=== PATIENT | female | born 1980 | race Caucasian/White ===

== ENCOUNTER 2020-09-02 12:02 | Inpatient (IN) | payer OTHER ==
[2020-09-02] MEDS ORDERED: SODIUM CHLORIDE 1,000 ML IV STA (13:37)
[2020-09-02] MEDS ORDERED: PIPERACILLIN/TAZOB 3.375 GM 3.375 GM in DEXTROSE 5%-WATER - 50 ML IVPB ONE (13:45)
[2020-09-02] MEDS ORDERED: PIPERACILLIN/TAZOB 3.375 GM 3.375 GM/50 ML BAG IVPB ONE (14:16)
[2020-09-02 14:32] LABS: BASO % 0.5 % (0-2.0); EOS % 0.6 % (0-4.5); HEMATOCRIT 33.9 % (32.4-45.2); HEMOGLOBIN 11.7 GM/dL (10.7-15.3); LYMPH % 8.7 % (8-40); MCH 29.2 pg (25.7-33.7); MCHC 34.4 g/dl (32.0-36.0); MEAN CELL VOLUME 84.9 fl (80-96); MONO % 6.7 % (3.8-10.2); NEUT % 83.5 % (42.8-82.8); PLATELET COUNT 266 K/MM3 (134-434); RBC 3.99 M/mm3 (3.60-5.2); RDW 14.3 % (11.6-15.6); WHITE BLOOD COUNT 8.9 K/mm3 (4.0-10.0)
[2020-09-02 14:37] LABS: INR 1.02 (0.83-1.09); PROTHROMBIN TIME (PATIENT) 12.5 SEC (9.7-13.0)
[2020-09-02 14:39] LABS: ACTIVATED PTT 47.2 SECONDS (25.2-36.5)
[2020-09-02 14:49] LABS: POTASSIUM 3.7 mmol/L (3.5-5.1)
[2020-09-02 14:51] LABS: ALBUMIN 2.4 g/dl (3.4-5.0); BLOOD UREA NITROGEN 16.5 mg/dL (7-18); CALCIUM 8.2 mg/dL (8.5-10.1)
[2020-09-02 14:52] LABS: EPI CELLS >36 /uL (0-25.1); HYALINE CASTS 19 /uL (0-3.1); PH,URINE 5.5 (5.0-8.0); URINE APPEARANCE CLOUDY; URINE BACTERIA 159 /uL (0-1359); URINE BILIRUBIN NEGATIVE (NEGATIVE); URINE COLOR YELLOW; URINE GLUCOSE (UA) 3+ (NEGATIVE); URINE KETONE 2+ (NEGATIVE); URINE LEUK ESTERASE NEGATIVE (NEGATIVE); URINE NITRITE NEGATIVE (NEGATIVE); URINE PROTEIN 1+ (NEGATIVE); URINE RBC 11 /uL (0-23.9); URINE WBC 37 /uL (0-25.8)
[2020-09-02 14:55] LABS: CREATININE 0.7 mg/dL (0.55-1.3)
[2020-09-02 14:56] LABS: BILIRUBIN,TOTAL 0.6 mg/dL (0.2-1); TOT PROT 6.9 g/dl (6.4-8.2)
[2020-09-02] MEDS ORDERED: VANCOMYCIN HCL 1,500 MG in DEXTROSE 5%-WATER - 500 ML IVPB ONE (18:09)
[2020-09-02] MEDS: PIPERACILLIN/TAZOB 4.5 GM 4.5 GM in DEXTROSE 5%-WATER 100 ML IVPB SCH (18:49)
[2020-09-02] MEDS: INSULIN SLIDING SCALE (NOVOLOG) 1 VIAL SQ SCH (22:07)
[2020-09-03] MEDS ORDERED: PIPERACILLIN/TAZOBACTAM 4.5 GM VIAL IVPB ONE ×2 (01:36→09:01)
[2020-09-03] MEDS ORDERED: DEXTROSE 5%-WATER 100 ML IVPB ONE ×2 (01:36→09:01)
[2020-09-03] MEDS: PIPERACILLIN/TAZOB 4.5 GM 4.5 GM in DEXTROSE 5%-WATER 100 ML IVPB SCH ×3 (01:41→18:25)
[2020-09-03 02:11] VITALS: BMI 28.5
[2020-09-03] MEDS: INSULIN SLIDING SCALE (NOVOLOG) 1 VIAL SQ SCH ×4 (06:17→21:18)
[2020-09-03 07:39] LABS: POTASSIUM 3.5 mmol/L (3.5-5.1)
[2020-09-03 07:40] LABS: BASO % 0.8 % (0-2.0); EOS % 1.8 % (0-4.5); HEMATOCRIT 31.2 % (32.4-45.2); HEMOGLOBIN 10.9 GM/dL (10.7-15.3); LYMPH % 11.6 % (8-40); MCH 29.5 pg (25.7-33.7); MCHC 34.9 g/dl (32.0-36.0); MEAN CELL VOLUME 84.4 fl (80-96); MEAN PLT VOLUME 8.8 fl (7.5-11.1); MONO % 5.4 % (3.8-10.2); NEUT % 80.4 % (42.8-82.8); PLATELET COUNT 276 K/MM3 (134-434); RBC 3.69 M/mm3 (3.60-5.2); RDW 14.2 % (11.6-15.6)
[2020-09-03 07:43] LABS: BLOOD UREA NITROGEN 9.6 mg/dL (7-18); CALCIUM 7.8 mg/dL (8.5-10.1)
[2020-09-03 07:47] LABS: CREATININE 0.5 mg/dL (0.55-1.3)
[2020-09-03] MEDS: ENOXAPARIN NA (PORCINE) 40 MG/0.4 ML DISP.SYRIN SQ SCH (09:45)
[2020-09-03] MEDS ORDERED: INSULIN (NOVOLOG) ASPART 100 UNITS/ML 10ML VIAL ONE (11:03)
[2020-09-03] MEDS ORDERED: VANCOMYCIN/WATER 1,250 MG/250 ML BAG IVPB SCH (12:30)
[2020-09-03] MEDS ORDERED: VANCOMYCIN HCL 1,250 MG in DEXTROSE 5%-WATER - 250 ML IVPB SCH ×3 (12:30→22:00)
[2020-09-03] MEDS ORDERED: VANCOMYCIN 1 GRAM (PRE-DOCKED) 1,000 MG/250 ML BAG IVPB SCH ×2 (15:00→18:00)
[2020-09-03] MEDS ORDERED: DEXTROSE 5%-WATER - 50 ML IVPB ONE ×2 (16:27→23:58)
[2020-09-03] MEDS ORDERED: PIPERACILLIN/TAZOBACTAM 3.375 GM VIAL IVPB ONE ×2 (16:27→23:58)
[2020-09-03] MEDS: PIPERACILLIN/TAZOB 3.375 GM 3.375 GM in DEXTROSE 5%-WATER - 50 ML IVPB SCH (17:29)
[2020-09-04] MEDS: VANCOMYCIN 1 GRAM (PRE-DOCKED) 1,000 MG/250 ML BAG IVPB SCH ×2 (00:05→13:34)
[2020-09-04] MEDS ORDERED: VANCOMYCIN 1,000 MG in DEXTROSE 5%-WATER - 1,000 MG/250 ML IVPB IVPB SCH (01:00)
[2020-09-04] MEDS: PIPERACILLIN/TAZOB 3.375 GM 3.375 GM in DEXTROSE 5%-WATER - 50 ML IVPB SCH ×3 (01:50→17:09)
[2020-09-04] MEDS: INSULIN SLIDING SCALE (NOVOLOG) 1 VIAL SQ SCH ×4 (06:25→21:31)
[2020-09-04] MEDS ORDERED: glipiZIDE 5 MG TABLET (FP) PO SCH (07:00)
[2020-09-04] MEDS: PIPERACILLIN/TAZOB 4.5 GM 4.5 GM in DEXTROSE 5%-WATER 100 ML IVPB SCH ×2 (07:15→07:16)
[2020-09-04 07:30] LABS: BASO % 0.8 % (0-2.0); EOS % 2.2 % (0-4.5); HEMATOCRIT 30.3 % (32.4-45.2); HEMOGLOBIN 10.4 GM/dL (10.7-15.3); MCH 29.2 pg (25.7-33.7); MCHC 34.4 g/dl (32.0-36.0); MEAN CELL VOLUME 84.8 fl (80-96); MEAN PLT VOLUME 8.5 fl (7.5-11.1); MONO % 10.7 % (3.8-10.2); NEUT % 71.3 % (42.8-82.8); PLATELET COUNT 311 K/MM3 (134-434); RBC 3.58 M/mm3 (3.60-5.2); RDW 13.6 % (11.6-15.6); WHITE BLOOD COUNT 4.9 K/mm3 (4.0-10.0)
[2020-09-04 07:53] LABS: POTASSIUM 3.8 mmol/L (3.5-5.1)
[2020-09-04 07:54] LABS: BLOOD UREA NITROGEN 7.5 mg/dL (7-18); CALCIUM 7.8 mg/dL (8.5-10.1)
[2020-09-04 07:55] LABS: MAGNESIUM 1.7 mg/dL (1.8-2.4)
[2020-09-04 07:58] LABS: CREATININE 0.5 mg/dL (0.55-1.3); PHOSPHOROUS 3.3 mg/dL (2.5-4.9)
[2020-09-04] MEDS ORDERED: PIPERACILLIN/TAZOBACTAM 3.375 GM VIAL IVPB ONE ×2 (09:32→16:36)
[2020-09-04] MEDS ORDERED: DEXTROSE 5%-WATER - 50 ML IVPB ONE ×2 (09:32→16:36)
[2020-09-04] MEDS ORDERED: VANCOMYCIN HCL 1,250 MG in DEXTROSE 5%-WATER - 250 ML IVPB SCH ×3 (10:00)
[2020-09-04] MEDS: ENOXAPARIN NA (PORCINE) 40 MG/0.4 ML DISP.SYRIN SQ SCH (10:00)
[2020-09-04] MEDS: BACITRACIN 15 GM TUBE TOPICAL OINTMENT TP SCH (10:01)
[2020-09-04] MEDS ORDERED: INSULIN (NOVOLOG) ASPART 100 UNITS/ML 10ML VIAL ONE (10:59)
[2020-09-04] MEDS ORDERED: MAGNESIUM 2GM/50ML STERILE WATER IVPB IVPB ONE (11:30)
[2020-09-04] MEDS ORDERED: glipiZIDE 5 MG TABLET (FP) PO ONE (12:00)
[2020-09-05] MEDS ORDERED: PIPERACILLIN/TAZOBACTAM 3.375 GM VIAL IVPB ONE ×3 (02:02→16:15)
[2020-09-05] MEDS ORDERED: DEXTROSE 5%-WATER - 50 ML IVPB ONE ×3 (02:02→16:16)
[2020-09-05] MEDS: PIPERACILLIN/TAZOB 3.375 GM 3.375 GM in DEXTROSE 5%-WATER - 50 ML IVPB SCH ×3 (02:10→16:59)
[2020-09-05] MEDS: VANCOMYCIN 1 GRAM (PRE-DOCKED) 1,000 MG/250 ML BAG IVPB SCH ×2 (02:11→12:45)
[2020-09-05] MEDS: INSULIN SLIDING SCALE (NOVOLOG) 1 VIAL SQ SCH ×4 (06:39→22:10)
[2020-09-05] MEDS ORDERED: glipiZIDE 5 MG TABLET (FP) PO SCH (07:00)
[2020-09-05 08:19] LABS: BASO % 0.6 % (0-2.0); EOS % 2.5 % (0-4.5); HEMATOCRIT 30.3 % (32.4-45.2); HEMOGLOBIN 10.7 GM/dL (10.7-15.3); LYMPH % 19.9 % (8-40); MCH 29.5 pg (25.7-33.7); MCHC 35.5 g/dl (32.0-36.0); MEAN PLT VOLUME 8.3 fl (7.5-11.1); MONO % 8.7 % (3.8-10.2); NEUT % 68.3 % (42.8-82.8); PLATELET COUNT 331 K/MM3 (134-434); RBC 3.65 M/mm3 (3.60-5.2); RDW 13.7 % (11.6-15.6); WHITE BLOOD COUNT 4.6 K/mm3 (4.0-10.0)
[2020-09-05 08:22] LABS: POTASSIUM 4.3 mmol/L (3.5-5.1)
[2020-09-05 08:29] LABS: BLOOD UREA NITROGEN 9.4 mg/dL (7-18); CALCIUM 7.6 mg/dL (8.5-10.1)
[2020-09-05 08:30] LABS: MAGNESIUM 1.5 mg/dL (1.8-2.4)
[2020-09-05 08:32] LABS: CREATININE 0.5 mg/dL (0.55-1.3)
[2020-09-05 08:33] LABS: PHOSPHOROUS 3.3 mg/dL (2.5-4.9)
[2020-09-05 08:34] LABS: BILIRUBIN,TOTAL 0.5 mg/dL (0.2-1)
[2020-09-05] MEDS: ENOXAPARIN NA (PORCINE) 40 MG/0.4 ML DISP.SYRIN SQ SCH (09:22)
[2020-09-05] MEDS: BACITRACIN 15 GM TUBE TOPICAL OINTMENT TP SCH (09:23)
[2020-09-05] MEDS ORDERED: INSULIN SLIDING SCALE (NOVOLOG) 1 VIAL SQ SCH (17:15)
[2020-09-05] MEDS ORDERED: MAGNESIUM SULF 50% (8.12 MEQ/2 ML-1 GM VIAL) IVPB ONE (19:59)
[2020-09-06] MEDS ORDERED: PIPERACILLIN/TAZOBACTAM 3.375 GM VIAL IVPB ONE ×3 (00:06→18:37)
[2020-09-06] MEDS ORDERED: DEXTROSE 5%-WATER - 50 ML IVPB ONE ×3 (00:06→18:38)
[2020-09-06] MEDS: VANCOMYCIN 1 GRAM (PRE-DOCKED) 1,000 MG/250 ML BAG IVPB SCH ×2 (00:24→16:43)
[2020-09-06] MEDS: PIPERACILLIN/TAZOB 3.375 GM 3.375 GM in DEXTROSE 5%-WATER - 50 ML IVPB SCH ×3 (02:19→18:42)
[2020-09-06] MEDS ORDERED: INSULIN (NOVOLOG) ASPART 100 UNITS/ML 10ML VIAL ONE ×3 (06:32→20:28)
[2020-09-06] MEDS: INSULIN SLIDING SCALE (NOVOLOG) 1 VIAL SQ SCH ×4 (06:35→21:50)
[2020-09-06] MEDS ORDERED: glipiZIDE-XL 5 MG TAB.ER.24 PO SCH (07:00)
[2020-09-06 07:46] LABS: BASO % 0.8 % (0-2.0); EOS % 2.8 % (0-4.5); HEMATOCRIT 31.3 % (32.4-45.2); LYMPH % 16.3 % (8-40); MCH 29.5 pg (25.7-33.7); MCHC 35.3 g/dl (32.0-36.0); MEAN CELL VOLUME 83.5 fl (80-96); MEAN PLT VOLUME 7.7 fl (7.5-11.1); MONO % 9.9 % (3.8-10.2); NEUT % 70.2 % (42.8-82.8); PLATELET COUNT 346 K/MM3 (134-434); RBC 3.75 M/mm3 (3.60-5.2); RDW 14.1 % (11.6-15.6); WHITE BLOOD COUNT 4.6 K/mm3 (4.0-10.0)
[2020-09-06 08:10] LABS: CHLORIDE 103 mmol/L (98-107); POTASSIUM 4.5 mmol/L (3.5-5.1); SODIUM 137 mmol/L (136-145)
[2020-09-06 08:31] LABS: ALBUMIN 2.2 g/dl (3.4-5.0); ANION GAP 8 MMOL/L (8-16); BLOOD UREA NITROGEN 14.3 mg/dL (7-18); CALCIUM 7.8 mg/dL (8.5-10.1); CO2 27 mmol/L (21-32); GLUCOSE,RANDOM 289 mg/dL (74-106); MAGNESIUM 1.6 mg/dL (1.8-2.4)
[2020-09-06 08:34] LABS: CREATININE 0.6 mg/dL (0.55-1.3); SGOT/AST 8 U/L (15-37); SGPT/ALT 13 U/L (13-61)
[2020-09-06 08:35] LABS: BILIRUBIN,TOTAL 0.9 mg/dL (0.2-1); TOT PROT 6.4 g/dl (6.4-8.2)
[2020-09-06 08:37] LABS: ALK PHOS 99 U/L (45-117)
[2020-09-06] MEDS ORDERED: MAGNESIUM SULF 50% (8.12 MEQ/2 ML-1 GM VIAL) IVPB ONE (10:23)
[2020-09-06] MEDS ORDERED: MIDAZOLAM HCL 2 MG/2 ML SINGLE DOSE VIAL ONE (14:04)
[2020-09-06] MEDS ORDERED: PROPOFOL 20 ML ONE ×2 (14:04)
[2020-09-06] MEDS ORDERED: LIDOCAINE HCL 1%, 10 MG/ML (20ML VIAL) NR ONE (14:39)
[2020-09-06] MEDS ORDERED: LACTATED RINGERS SOLUTION 1,000 ML IV SCH ×2 (14:45→15:15)
[2020-09-06] MEDS ORDERED: ONDANSETRON 4 MG/2 ML VIAL IVPUSH PRN ×2 (14:45→15:15)
[2020-09-06] MEDS ORDERED: glipiZIDE 10 MG TABLET (FP) PO ONE (16:24)
[2020-09-06] MEDS: BACITRACIN 15 GM TUBE TOPICAL OINTMENT TP SCH (16:42)
[2020-09-06] MEDS ORDERED: glipiZIDE 5 MG TABLET (FP) ONE (16:53)
[2020-09-06] MEDS ORDERED: VANCOMYCIN 1 GRAM (PRE-DOCKED) 1,000 MG/250 ML BAG IVPB SCH (17:00)
[2020-09-07] MEDS ORDERED: PIPERACILLIN/TAZOBACTAM 3.375 GM VIAL IVPB ONE ×3 (00:58→16:14)
[2020-09-07] MEDS ORDERED: DEXTROSE 5%-WATER - 50 ML IVPB ONE ×3 (00:58→16:14)
[2020-09-07] MEDS: PIPERACILLIN/TAZOB 3.375 GM 3.375 GM in DEXTROSE 5%-WATER - 50 ML IVPB SCH ×3 (02:24→17:14)
[2020-09-07] MEDS: VANCOMYCIN HCL 1,250 MG in DEXTROSE 5%-WATER - 250 ML IVPB SCH ×2 (04:21→17:13)
[2020-09-07] MEDS ORDERED: PT OWN MED DRAWER 7, Y5N ONE ×3 (04:59→16:14)
[2020-09-07] MEDS ORDERED: VANCOMYCIN/WATER 1,250 MG/250 ML BAG IVPB SCH (05:00)
[2020-09-07] MEDS: glipiZIDE-XL 5 MG TAB.ER.24 PO SCH ×2 (06:05→17:13)
[2020-09-07] MEDS: INSULIN SLIDING SCALE (NOVOLOG) 1 VIAL SQ SCH ×4 (06:06→21:39)
[2020-09-07] MEDS ORDERED: glipiZIDE 10 MG TABLET (FP) PO SCH (07:00)
[2020-09-07] MEDS ORDERED: glipiZIDE-XL 5 MG TAB.ER.24 PO SCH (07:00)
[2020-09-07 08:29] LABS: POTASSIUM 4.2 mmol/L (3.5-5.1)
[2020-09-07 08:30] LABS: BASO % 0.5 % (0-2.0); EOS % 0.8 % (0-4.5); HEMATOCRIT 31.7 % (32.4-45.2); HEMOGLOBIN 11.1 GM/dL (10.7-15.3); LYMPH % 18.4 % (8-40); MCH 29.2 pg (25.7-33.7); MEAN CELL VOLUME 83.3 fl (80-96); MEAN PLT VOLUME 7.7 fl (7.5-11.1); MONO % 6.7 % (3.8-10.2); NEUT % 73.6 % (42.8-82.8); PLATELET COUNT 380 K/MM3 (134-434); WHITE BLOOD COUNT 4.4 K/mm3 (4.0-10.0)
[2020-09-07 08:33] LABS: BLOOD UREA NITROGEN 15.8 mg/dL (7-18)
[2020-09-07 08:36] LABS: CALCIUM 7.9 mg/dL (8.5-10.1)
[2020-09-07 08:37] LABS: CREATININE 0.7 mg/dL (0.55-1.3); MAGNESIUM 1.9 mg/dL (1.8-2.4); PHOSPHOROUS 2.4 mg/dL (2.5-4.9)
[2020-09-07] MEDS: SILVER SULFADIAZINE 1% TOP CREAM 50 GM JAR TP SCH (10:30)
[2020-09-07] MEDS: ENOXAPARIN NA (PORCINE) 40 MG/0.4 ML DISP.SYRIN SQ SCH (10:31)
[2020-09-07] MEDS: BACITRACIN 15 GM TUBE TOPICAL OINTMENT TP SCH (12:33)
[2020-09-08] MEDS ORDERED: PIPERACILLIN/TAZOBACTAM 3.375 GM VIAL IVPB ONE ×3 (01:25→17:12)
[2020-09-08] MEDS ORDERED: DEXTROSE 5%-WATER - 50 ML IVPB ONE ×3 (01:25→17:13)
[2020-09-08] MEDS: PIPERACILLIN/TAZOB 3.375 GM 3.375 GM in DEXTROSE 5%-WATER - 50 ML IVPB SCH ×3 (03:11→17:25)
[2020-09-08] MEDS ORDERED: PT OWN MED DRAWER 7, Y5N ONE ×2 (04:27→17:27)
[2020-09-08] MEDS: INSULIN SLIDING SCALE (NOVOLOG) 1 VIAL SQ SCH ×4 (06:38→21:26)
[2020-09-08] MEDS: glipiZIDE-XL 5 MG TAB.ER.24 PO SCH ×2 (06:41→17:28)
[2020-09-08 07:53] LABS: HEMATOCRIT 30.9 % (32.4-45.2); HEMOGLOBIN 10.7 GM/dL (10.7-15.3); MCH 29.1 pg (25.7-33.7); MCHC 34.4 g/dl (32.0-36.0); MEAN CELL VOLUME 84.4 fl (80-96); MEAN PLT VOLUME 7.8 fl (7.5-11.1); PLATELET COUNT 343 K/MM3 (134-434); RBC 3.67 M/mm3 (3.60-5.2); RDW 13.9 % (11.6-15.6); WHITE BLOOD COUNT 4.1 K/mm3 (4.0-10.0)
[2020-09-08 08:08] LABS: POTASSIUM 4.5 mmol/L (3.5-5.1)
[2020-09-08 08:12] LABS: BLOOD UREA NITROGEN 14.6 mg/dL (7-18)
[2020-09-08 08:15] LABS: CREATININE 0.6 mg/dL (0.55-1.3)
[2020-09-08] MEDS: VANCOMYCIN HCL 1,250 MG in DEXTROSE 5%-WATER - 250 ML IVPB SCH (08:37)
[2020-09-08] MEDS: SILVER SULFADIAZINE 1% TOP CREAM 50 GM JAR TP SCH (10:38)
[2020-09-08] MEDS: ENOXAPARIN NA (PORCINE) 40 MG/0.4 ML DISP.SYRIN SQ SCH (10:38)
[2020-09-08] MEDS: BACITRACIN 15 GM TUBE TOPICAL OINTMENT TP SCH (10:39)
[2020-09-08] MEDS ORDERED: INSULIN (NOVOLOG) ASPART 100 UNITS/ML 10ML VIAL ONE (21:18)
[2020-09-08] MEDS ORDERED: INSULIN (LEVEMIR) 100 UNITS/ML UNITS SQ ONE (21:18)
[2020-09-09] MEDS ORDERED: PIPERACILLIN/TAZOBACTAM 3.375 GM VIAL IVPB ONE ×3 (00:58→18:00)
[2020-09-09] MEDS ORDERED: DEXTROSE 5%-WATER - 50 ML IVPB ONE ×3 (00:59→18:00)
[2020-09-09] MEDS: PIPERACILLIN/TAZOB 3.375 GM 3.375 GM in DEXTROSE 5%-WATER - 50 ML IVPB SCH ×3 (01:04→18:03)
[2020-09-09] MEDS: INSULIN SLIDING SCALE (NOVOLOG) 1 VIAL SQ SCH ×4 (06:04→21:18)
[2020-09-09] MEDS: glipiZIDE-XL 5 MG TAB.ER.24 PO SCH ×2 (06:04→18:06)
[2020-09-09] MEDS: BACITRACIN 15 GM TUBE TOPICAL OINTMENT TP SCH (09:19)
[2020-09-09] MEDS: SILVER SULFADIAZINE 1% TOP CREAM 50 GM JAR TP SCH (09:19)
[2020-09-09] MEDS ORDERED: PROPOFOL 20 ML ONE (14:14)
[2020-09-09] MEDS ORDERED: MIDAZOLAM HCL 2 MG/2 ML SINGLE DOSE VIAL ONE ×2 (14:15)
[2020-09-09] MEDS ORDERED: BACITRACIN 50,000 UNITS VIAL TP ONE (15:14)
[2020-09-09] MEDS ORDERED: ONDANSETRON 4 MG/2 ML VIAL IVPUSH PRN ×2 (16:36→17:13)
[2020-09-09] MEDS ORDERED: IBUPROFEN 400 MG TABLET (FP) PO PRN (19:16)
[2020-09-10] MEDS ORDERED: PIPERACILLIN/TAZOBACTAM 3.375 GM VIAL IVPB ONE ×3 (00:46→16:52)
[2020-09-10] MEDS ORDERED: DEXTROSE 5%-WATER - 50 ML IVPB ONE ×3 (00:46→16:53)
[2020-09-10] MEDS: PIPERACILLIN/TAZOB 3.375 GM 3.375 GM in DEXTROSE 5%-WATER - 50 ML IVPB SCH ×3 (01:44→17:00)
[2020-09-10] MEDS: glipiZIDE-XL 5 MG TAB.ER.24 PO SCH ×2 (06:15→16:58)
[2020-09-10] MEDS: INSULIN SLIDING SCALE (NOVOLOG) 1 VIAL SQ SCH ×4 (06:16→22:34)
[2020-09-10 08:51] LABS: HEMATOCRIT 34.1 % (32.4-45.2); HEMOGLOBIN 11.7 GM/dL (10.7-15.3); MCHC 34.4 g/dl (32.0-36.0); MEAN CELL VOLUME 84.4 fl (80-96); MEAN PLT VOLUME 8.1 fl (7.5-11.1); PLATELET COUNT 362 K/MM3 (134-434); RBC 4.04 M/mm3 (3.60-5.2); RDW 14.1 % (11.6-15.6); WHITE BLOOD COUNT 5.4 K/mm3 (4.0-10.0)
[2020-09-10 09:00] LABS: POTASSIUM 4.5 mmol/L (3.5-5.1)
[2020-09-10 09:05] LABS: CALCIUM 8.6 mg/dL (8.5-10.1)
[2020-09-10 09:06] LABS: BLOOD UREA NITROGEN 15.1 mg/dL (7-18); MAGNESIUM 1.9 mg/dL (1.8-2.4)
[2020-09-10 09:09] LABS: CREATININE 0.6 mg/dL (0.55-1.3); PHOSPHOROUS 3.6 mg/dL (2.5-4.9)
[2020-09-10] MEDS: LISINOPRIL 5 MG TABLET PO SCH (10:26)
[2020-09-11] MEDS ORDERED: PIPERACILLIN/TAZOBACTAM 3.375 GM VIAL IVPB ONE ×3 (00:50→16:21)
[2020-09-11] MEDS ORDERED: DEXTROSE 5%-WATER - 50 ML IVPB ONE ×3 (00:50→16:21)
[2020-09-11] MEDS: PIPERACILLIN/TAZOB 3.375 GM 3.375 GM in DEXTROSE 5%-WATER - 50 ML IVPB SCH ×3 (01:15→17:02)
[2020-09-11] MEDS ORDERED: PT OWN MED DRAWER 7, Y5N ONE (05:31)
[2020-09-11] MEDS: glipiZIDE-XL 5 MG TAB.ER.24 PO SCH ×2 (06:09→16:46)
[2020-09-11] MEDS: INSULIN SLIDING SCALE (NOVOLOG) 1 VIAL SQ SCH ×4 (06:09→21:10)
[2020-09-11 07:58] LABS: HEMATOCRIT 32.7 % (32.4-45.2); HEMOGLOBIN 11.4 GM/dL (10.7-15.3); MCH 29.3 pg (25.7-33.7); MCHC 34.9 g/dl (32.0-36.0); MEAN CELL VOLUME 84.1 fl (80-96); MEAN PLT VOLUME 7.9 fl (7.5-11.1); PLATELET COUNT 367 K/MM3 (134-434); RBC 3.88 M/mm3 (3.60-5.2); RDW 14.6 % (11.6-15.6)
[2020-09-11 08:18] LABS: POTASSIUM 4.1 mmol/L (3.5-5.1)
[2020-09-11 08:21] LABS: BLOOD UREA NITROGEN 16.7 mg/dL (7-18); CALCIUM 8.6 mg/dL (8.5-10.1); MAGNESIUM 1.8 mg/dL (1.8-2.4)
[2020-09-11 08:24] LABS: CREATININE 0.6 mg/dL (0.55-1.3)
[2020-09-11 08:25] LABS: PHOSPHOROUS 3.3 mg/dL (2.5-4.9)
[2020-09-11] MEDS: LISINOPRIL 5 MG TABLET PO SCH (09:32)
[2020-09-11] MEDS: INSULIN (LEVEMIR) 100 UNITS/ML UNITS SQ SCH ×2 (11:01→21:07)
[2020-09-11] MEDS ORDERED: INSULIN (NOVOLOG) ASPART 100 UNITS/ML 10ML VIAL ONE (20:39)
[2020-09-12] MEDS ORDERED: PIPERACILLIN/TAZOBACTAM 3.375 GM VIAL IVPB ONE ×3 (00:57→16:55)
[2020-09-12] MEDS ORDERED: DEXTROSE 5%-WATER - 50 ML IVPB ONE ×3 (00:58→16:55)
[2020-09-12] MEDS: PIPERACILLIN/TAZOB 3.375 GM 3.375 GM in DEXTROSE 5%-WATER - 50 ML IVPB SCH ×3 (01:18→17:28)
[2020-09-12] MEDS: INSULIN SLIDING SCALE (NOVOLOG) 1 VIAL SQ SCH ×4 (06:39→21:16)
[2020-09-12] MEDS: glipiZIDE-XL 5 MG TAB.ER.24 PO SCH ×2 (06:39→17:28)
[2020-09-12] MEDS: INSULIN (LEVEMIR) 100 UNITS/ML UNITS SQ SCH ×2 (06:40→21:16)
[2020-09-12] MEDS: LISINOPRIL 5 MG TABLET PO SCH (11:05)
[2020-09-12] MEDS: BACITRACIN 15 GM TUBE TOPICAL OINTMENT TP SCH (11:06)
[2020-09-12] MEDS ORDERED: INSULIN (NOVOLOG) ASPART 100 UNITS/ML 10ML VIAL ONE (11:14)
[2020-09-12 12:18] LABS: HEMATOCRIT 32.4 % (32.4-45.2); HEMOGLOBIN 11.2 GM/dL (10.7-15.3); MCH 28.9 pg (25.7-33.7); MCHC 34.7 g/dl (32.0-36.0); MEAN CELL VOLUME 83.1 fl (80-96); MEAN PLT VOLUME 7.8 fl (7.5-11.1); PLATELET COUNT 363 K/MM3 (134-434); RBC 3.89 M/mm3 (3.60-5.2); RDW 14.7 % (11.6-15.6); WHITE BLOOD COUNT 4.8 K/mm3 (4.0-10.0)
[2020-09-12 12:34] LABS: POTASSIUM 4.2 mmol/L (3.5-5.1)
[2020-09-12 12:35] LABS: CALCIUM 8.1 mg/dL (8.5-10.1)
[2020-09-12 12:36] LABS: BLOOD UREA NITROGEN 14.6 mg/dL (7-18); MAGNESIUM 1.8 mg/dL (1.8-2.4)
[2020-09-12 12:39] LABS: CREATININE 0.5 mg/dL (0.55-1.3); PHOSPHOROUS 2.8 mg/dL (2.5-4.9)
[2020-09-12] MEDS: CEFAZOLIN 2 GM/D5W 2 GM/50 ML ML IVPB SCH (20:31)
[2020-09-13] MEDS: CEFAZOLIN 2 GM/D5W 2 GM/50 ML ML IVPB SCH ×3 (04:31→21:05)
[2020-09-13] MEDS ORDERED: PT OWN MED DRAWER 7, Y5N ONE (06:11)
[2020-09-13] MEDS: glipiZIDE-XL 5 MG TAB.ER.24 PO SCH ×2 (06:25→16:44)
[2020-09-13] MEDS: INSULIN (LEVEMIR) 100 UNITS/ML UNITS SQ SCH ×2 (06:26→21:05)
[2020-09-13] MEDS: INSULIN SLIDING SCALE (NOVOLOG) 1 VIAL SQ SCH ×4 (06:26→21:05)
[2020-09-13 08:09] LABS: HEMATOCRIT 31.4 % (32.4-45.2); MCH 29.1 pg (25.7-33.7); MCHC 35.1 g/dl (32.0-36.0); MEAN CELL VOLUME 83.1 fl (80-96); MEAN PLT VOLUME 8.1 fl (7.5-11.1); PLATELET COUNT 341 K/MM3 (134-434); RBC 3.77 M/mm3 (3.60-5.2); RDW 14.6 % (11.6-15.6); WHITE BLOOD COUNT 5.2 K/mm3 (4.0-10.0)
[2020-09-13 08:24] LABS: POTASSIUM 4.4 mmol/L (3.5-5.1)
[2020-09-13 08:28] LABS: CALCIUM 8.5 mg/dL (8.5-10.1)
[2020-09-13 08:29] LABS: MAGNESIUM 1.9 mg/dL (1.8-2.4)
[2020-09-13 08:31] LABS: CREATININE 0.5 mg/dL (0.55-1.3)
[2020-09-13 08:33] LABS: PHOSPHOROUS 3.2 mg/dL (2.5-4.9)
[2020-09-13] MEDS: LISINOPRIL 5 MG TABLET PO SCH (09:00)
[2020-09-13] MEDS: BACITRACIN 15 GM TUBE TOPICAL OINTMENT TP SCH (09:00)
[2020-09-14] MEDS ORDERED: PT OWN MED DRAWER 7, Y5N ONE ×2 (04:14→16:24)
[2020-09-14] MEDS: CEFAZOLIN 2 GM/D5W 2 GM/50 ML ML IVPB SCH ×3 (05:39→21:28)
[2020-09-14] MEDS: INSULIN SLIDING SCALE (NOVOLOG) 1 VIAL SQ SCH ×4 (06:17→21:30)
[2020-09-14] MEDS: INSULIN (LEVEMIR) 100 UNITS/ML UNITS SQ SCH ×2 (06:17→21:29)
[2020-09-14] MEDS: glipiZIDE-XL 5 MG TAB.ER.24 PO SCH ×2 (06:18→16:32)
[2020-09-14 07:17] LABS: HEMATOCRIT 33.1 % (32.4-45.2); HEMOGLOBIN 11.4 GM/dL (10.7-15.3); MCHC 34.6 g/dl (32.0-36.0); MEAN CELL VOLUME 83.8 fl (80-96); MEAN PLT VOLUME 8.4 fl (7.5-11.1); PLATELET COUNT 354 K/MM3 (134-434); RBC 3.94 M/mm3 (3.60-5.2); RDW 14.7 % (11.6-15.6); WHITE BLOOD COUNT 4.2 K/mm3 (4.0-10.0)
[2020-09-14 07:49] LABS: POTASSIUM 4.4 mmol/L (3.5-5.1)
[2020-09-14 08:02] LABS: BLOOD UREA NITROGEN 15.6 mg/dL (7-18); CALCIUM 8.5 mg/dL (8.5-10.1); MAGNESIUM 1.8 mg/dL (1.8-2.4)
[2020-09-14 08:06] LABS: CREATININE 0.6 mg/dL (0.55-1.3); PHOSPHOROUS 3.7 mg/dL (2.5-4.9)
[2020-09-14] MEDS: LISINOPRIL 5 MG TABLET PO SCH (09:11)
[2020-09-14] MEDS: BACITRACIN 15 GM TUBE TOPICAL OINTMENT TP SCH (09:11)
[2020-09-14] MEDS ORDERED: INSULIN (NOVOLOG) ASPART 100 UNITS/ML 10ML VIAL ONE ×3 (11:30→21:10)
[2020-09-15] MEDS: CEFAZOLIN 2 GM/D5W 2 GM/50 ML ML IVPB SCH ×3 (03:03→21:16)
[2020-09-15] MEDS: INSULIN (LEVEMIR) 100 UNITS/ML UNITS SQ SCH ×2 (06:00→21:18)
[2020-09-15] MEDS: glipiZIDE-XL 5 MG TAB.ER.24 PO SCH ×2 (06:00→16:57)
[2020-09-15] MEDS: INSULIN SLIDING SCALE (NOVOLOG) 1 VIAL SQ SCH ×4 (06:01→21:19)
[2020-09-15] MEDS: LISINOPRIL 5 MG TABLET PO SCH (09:15)
[2020-09-15] MEDS: BACITRACIN 15 GM TUBE TOPICAL OINTMENT TP SCH (09:16)
[2020-09-15] MEDS ORDERED: INSULIN (NOVOLOG) ASPART 100 UNITS/ML 10ML VIAL ONE (21:07)
[2020-09-16] MEDS: CEFAZOLIN 2 GM/D5W 2 GM/50 ML ML IVPB SCH ×3 (03:23→21:09)
[2020-09-16] MEDS: glipiZIDE-XL 5 MG TAB.ER.24 PO SCH ×2 (06:26→17:04)
[2020-09-16] MEDS: INSULIN (LEVEMIR) 100 UNITS/ML UNITS SQ SCH ×2 (06:27→22:46)
[2020-09-16] MEDS: INSULIN SLIDING SCALE (NOVOLOG) 1 VIAL SQ SCH ×4 (06:28→22:45)
[2020-09-16] MEDS ORDERED: INSULIN (NOVOLOG) ASPART 100 UNITS/ML 10ML VIAL ONE (07:02)
[2020-09-16] MEDS ORDERED: PT OWN MED DRAWER 7, Y5N ONE ×2 (07:02→17:00)
[2020-09-16] MEDS: LISINOPRIL 5 MG TABLET PO SCH (09:56)
[2020-09-16] MEDS: BACITRACIN 15 GM TUBE TOPICAL OINTMENT TP SCH (11:52)
[2020-09-17] MEDS: CEFAZOLIN 2 GM/D5W 2 GM/50 ML ML IVPB SCH ×3 (05:30→19:57)
[2020-09-17] MEDS: INSULIN (LEVEMIR) 100 UNITS/ML UNITS SQ SCH ×2 (06:02→21:14)
[2020-09-17] MEDS: INSULIN SLIDING SCALE (NOVOLOG) 1 VIAL SQ SCH ×4 (06:02→21:16)
[2020-09-17] MEDS ORDERED: PT OWN MED DRAWER 7, Y5N ONE ×2 (06:53→17:14)
[2020-09-17] MEDS: glipiZIDE-XL 5 MG TAB.ER.24 PO SCH ×2 (06:54→17:24)
[2020-09-17 07:52] LABS: HEMOGLOBIN 11.5 GM/dL (10.7-15.3); MCH 28.6 pg (25.7-33.7); MCHC 34.8 g/dl (32.0-36.0); MEAN CELL VOLUME 82.2 fl (80-96); MEAN PLT VOLUME 8.4 fl (7.5-11.1); PLATELET COUNT 344 K/MM3 (134-434); RBC 4.01 M/mm3 (3.60-5.2); RDW 14.5 % (11.6-15.6); WHITE BLOOD COUNT 4.5 K/mm3 (4.0-10.0)
[2020-09-17 08:16] LABS: POTASSIUM 4.6 mmol/L (3.5-5.1)
[2020-09-17 08:51] LABS: BLOOD UREA NITROGEN 15.7 mg/dL (7-18); CALCIUM 8.5 mg/dL (8.5-10.1); MAGNESIUM 1.8 mg/dL (1.8-2.4)
[2020-09-17 08:54] LABS: CREATININE 0.6 mg/dL (0.55-1.3); PHOSPHOROUS 3.5 mg/dL (2.5-4.9)
[2020-09-17] MEDS: LISINOPRIL 5 MG TABLET PO SCH (09:58)
[2020-09-17] MEDS: BACITRACIN 15 GM TUBE TOPICAL OINTMENT TP SCH (11:21)
[2020-09-17] MEDS ORDERED: INSULIN (NOVOLOG) ASPART 100 UNITS/ML 10ML VIAL ONE (21:16)
[2020-09-18] MEDS: CEFAZOLIN 2 GM/D5W 2 GM/50 ML ML IVPB SCH ×2 (03:28→11:45)
[2020-09-18] MEDS ORDERED: PT OWN MED DRAWER 7, Y5N ONE (06:04)
[2020-09-18] MEDS: glipiZIDE-XL 5 MG TAB.ER.24 PO SCH (06:23)
[2020-09-18] MEDS: INSULIN (LEVEMIR) 100 UNITS/ML UNITS SQ SCH (06:23)
[2020-09-18] MEDS: INSULIN SLIDING SCALE (NOVOLOG) 1 VIAL SQ SCH ×2 (06:24→11:44)
[2020-09-18 06:57] LABS: HEMATOCRIT 33.5 % (32.4-45.2); HEMOGLOBIN 11.6 GM/dL (10.7-15.3); MCH 28.9 pg (25.7-33.7); MCHC 34.7 g/dl (32.0-36.0); MEAN CELL VOLUME 83.1 fl (80-96); MEAN PLT VOLUME 8.6 fl (7.5-11.1); PLATELET COUNT 338 K/MM3 (134-434); RBC 4.03 M/mm3 (3.60-5.2); RDW 14.5 % (11.6-15.6); WHITE BLOOD COUNT 4.1 K/mm3 (4.0-10.0)
[2020-09-18 07:28] LABS: POTASSIUM 4.8 mmol/L (3.5-5.1)
[2020-09-18 07:34] LABS: BLOOD UREA NITROGEN 15.9 mg/dL (7-18); CALCIUM 8.9 mg/dL (8.5-10.1); MAGNESIUM 1.7 mg/dL (1.8-2.4)
[2020-09-18 07:37] LABS: CREATININE 0.5 mg/dL (0.55-1.3); PHOSPHOROUS 3.8 mg/dL (2.5-4.9)
[2020-09-18] MEDS ORDERED: MAGNESIUM SULF 50% (8.12 MEQ/2 ML-1 GM VIAL) IVPB ONE (08:24)
[2020-09-18] MEDS: BACITRACIN 15 GM TUBE TOPICAL OINTMENT TP SCH (09:26)
[2020-09-18] MEDS: LISINOPRIL 5 MG TABLET PO SCH (09:26)
[2020-09-18] MEDS ORDERED: INSULIN (NOVOLOG) ASPART 100 UNITS/ML 10ML VIAL ONE (11:32)
[2020-09-18 13:37] VITALS: BP 97/63; PULSE 93; TEMP 98.5
== END 2020-09-18 17:45 | disposition home or self-care (01) | DRG 623 ==
LOC: JER 12:02 → JERBED 16:18 → J7W 09-03 00:44
PROVIDERS: ADMIT Internal Medicine; ATTEND Internal Medicine
PROC: 0JBQ0ZZ Excision of Right Foot Subcutaneous Tissue and Fascia, Open Approach (ICD-10-PCS; principal; 2020-09-06 14:30)
PROC: 0JBR0ZZ Excision of Left Foot Subcutaneous Tissue and Fascia, Open Approach (ICD-10-PCS; 2020-09-09)
PROC: 2W1TX6Z Compression of Left Foot using Pressure Dressing (ICD-10-PCS; 2020-09-11)
DX: E11.628 Type 2 diabetes mellitus with other skin complications (principal); L03.116 Cellulitis of left lower limb; E87.1 Hypo-osmolality and hyponatremia; E11.65 Type 2 diabetes mellitus with hyperglycemia; E11.621 Type 2 diabetes mellitus with foot ulcer; L97.529 Non-pressure chronic ulcer of other part of left foot with unspecified severity; E83.42 Hypomagnesemia; N83.202 Unspecified ovarian cyst, left side; R16.1 Splenomegaly, not elsewhere classified; Z79.84 Long term (current) use of oral hypoglycemic drugs
CPT/HCPCS: 36415; 73701-TC-RT; 75635-TC; 80048; 80053; 81003; 82962; 83036; 83605; 83735; 84100; 84702; 84703; 85025; 85027; 85610; 85730; 86850; 86870; 86900; 86901; 86902; 87040; 87070; 87086; 87186; 87205; 88304-TC; 93005; 93010; 93971-TC; 94760; 99285-25; C9803; G0480; Q9967; U0003

== ENCOUNTER 2020-11-04 04:36 | Day surgery (SDC) | payer OTHER ==
[2020-11-04 12:43] VITALS: BMI 28.6
[2020-11-04] MEDS ORDERED: PROPOFOL 20 ML ONE (13:56)
[2020-11-04] MEDS ORDERED: MIDAZOLAM HCL 2 MG/2 ML SINGLE DOSE VIAL ONE (13:56)
[2020-11-04] MEDS ORDERED: BUPIVACAINE HCL/PF 0.25% (2.5MG/ML) 10 ML VIAL ONE (13:59)
[2020-11-04] MEDS ORDERED: LIDOCAINE HCL 1%, 10 MG/ML (20ML VIAL) ONE (13:59)
[2020-11-04] MEDS ORDERED: ceFAZolin SODIUM 1 GM VIAL IVPB ONE (14:15)
[2020-11-04] MEDS ORDERED: LIDOCAINE 1%/EPI 1:100000 (50 ML MULTI DOSE VIAL) ONE (14:27)
[2020-11-04] MEDS ORDERED: LIDOCAINE HCL 1%, 10 MG/ML (20ML VIAL) NR ONE (14:35)
[2020-11-04] MEDS ORDERED: BUPIVACAINE HCL/PF 0.25% (2.5MG/ML) 10 ML VIAL IJ ONE (14:35)
[2020-11-04] MEDS ORDERED: ONDANSETRON 4 MG/2 ML VIAL IVPUSH PRN (14:40)
[2020-11-04] MEDS ORDERED: oxyCODONE HCL 5 MG TABLET PO PRN (14:40)
[2020-11-04] MEDS ORDERED: GENTAMICIN SO4 0.1% TOPICAL OINTMENT 15 GM/TUBE TUBE TP ONE ×2 (14:45→15:15)
[2020-11-04] MEDS ORDERED: LACTATED RINGERS SOLUTION 1,000 ML IV SCH (14:45)
[2020-11-04] MEDS ORDERED: ACETAMINOPHEN INJECTION 100 ML IVPB ONE (15:42)
[2020-11-04] MEDS ORDERED: ACETAMINOPHEN 1000 MG/100 ML VIAL (NON FORMULARY) IVPB ONE (15:47)
[2020-11-04 18:11] VITALS: BP 126/80; TEMP 98.3
[2020-11-04 18:21] VITALS: PULSE 98
== END 2020-11-04 17:55 | disposition home or self-care (01) ==
LOC: JASU-SURG 04:36
PROVIDERS: ATTEND Plastic Surgery
PROC: 0HRNX73 Replacement of Left Foot Skin with Autologous Tissue Substitute, Full Thickness, External Approach (ICD-10-PCS; principal; 2020-11-04 14:00)
PROC: 0HBJXZZ Excision of Left Upper Leg Skin, External Approach (ICD-10-PCS; 2020-11-04 14:00)
DX: E11.621 Type 2 diabetes mellitus with foot ulcer (principal)
CPT/HCPCS: 81025; 82962; 88304-TC; 94760; J0131

== ENCOUNTER 2022-04-16 04:57 | Inpatient (IN) | payer OTHER ==
[2022-04-16 05:19] VITALS: BMI 31.4
[2022-04-16] MEDS ORDERED: CLINDAMYCIN 600MG PREMIX IVPB 600 MG/50 ML BAG IVPB ONE ×2 (06:03→06:24)
[2022-04-16 07:33] LABS: ALBUMIN 2.7 g/dl (3.4-5.0); BLOOD UREA NITROGEN 26.8 mg/dL (7-18); CALCIUM 8.1 mg/dL (8.5-10.1)
[2022-04-16 07:36] LABS: CREATININE 0.6 mg/dL (0.55-1.3)
[2022-04-16 07:38] LABS: BILIRUBIN,TOTAL 0.5 mg/dL (0.2-1); TOT PROT 7.1 g/dl (6.4-8.2)
[2022-04-16] MEDS ORDERED: PIPERACILLIN/TAZOB 4.5 GM 4.5 GM in DEXTROSE 5%-WATER 100 ML IVPB ONE (07:52)
[2022-04-16] MEDS ORDERED: PIPERACILLIN/TAZOB 4.5 GM 4.5 GM/100 ML BAG IVPB ONE (08:02)
[2022-04-16 08:14] LABS: BASO % 0.6 % (0-2.0); EOS % 3.5 % (0-4.5); HEMATOCRIT 25.8 % (32.4-45.2); LYMPH % 19.8 % (8-40); MCH 27.1 pg (25.7-33.7); MCHC 34.7 g/dl (32.0-36.0); MEAN CELL VOLUME 78.1 fl (80-96); MEAN PLT VOLUME 8.8 fl (7.5-11.1); MONO % 8.1 % (3.8-10.2); PLATELET COUNT 220 10^3/uL (134-434); RBC 3.31 M/mm3 (3.60-5.2); RDW 14.8 % (11.6-15.6)
[2022-04-16] MEDS ORDERED: ACETAMINOPHEN 325 MG TABLET (FP) PO PRN (08:56)
[2022-04-16] MEDS ORDERED: SENNOSIDES 8.6MG TABLET (FP) PO PRN (08:56)
[2022-04-16] MEDS ORDERED: oxyCODONE HCL 5 MG TABLET PO PRN (08:56)
[2022-04-16] MEDS ORDERED: DOCUSATE SODIUM 100 MG CAPSULE (FP) PO PRN (08:56)
[2022-04-16 11:30] LABS: ERYTHROCYTE SEDIMENTATION RATE 108 mm/hr (0-20)
[2022-04-16] MEDS: INSULIN SLIDING SCALE (NOVOLOG) 1 VIAL SQ SCH ×3 (12:30→21:15)
[2022-04-16 13:46] LABS: MAGNESIUM 1.9 mg/dL (1.8-2.4)
[2022-04-16 13:50] LABS: PHOSPHOROUS 3.8 mg/dL (2.5-4.9)
[2022-04-16] MEDS: CEFAZOLIN SODIUM 2 GM in DEXTROSE 5%-WATER 100 ML IVPB SCH (17:37)
[2022-04-16] MEDS ORDERED: PIPERACILLIN/TAZOB 3.375 GM 3.375 GM in DEXTROSE 5%-WATER - 50 ML IVPB SCH (18:00)
[2022-04-16 19:44] LABS: EPI CELLS 12 /uL (0-25.1); HYALINE CASTS 0 /uL (0-3.1); PH,URINE 6.5 (5.0-8.0); URINE APPEARANCE CLEAR; URINE BACTERIA 77 /uL (0-1359); URINE BILIRUBIN NEGATIVE (NEGATIVE); URINE COLOR YELLOW; URINE GLUCOSE (UA) NEGATIVE (NEGATIVE); URINE KETONE NEGATIVE (NEGATIVE); URINE LEUK ESTERASE NEGATIVE (NEGATIVE); URINE NITRITE NEGATIVE (NEGATIVE); URINE PROTEIN 2+ (NEGATIVE); URINE RBC 65 /uL (0-23.9); URINE WBC 11 /uL (0-25.8)
[2022-04-17] MEDS: CEFAZOLIN SODIUM 2 GM in DEXTROSE 5%-WATER 100 ML IVPB SCH ×3 (02:48→17:20)
[2022-04-17] MEDS: INSULIN SLIDING SCALE (NOVOLOG) 1 VIAL SQ SCH ×4 (06:03→21:24)
[2022-04-17] MEDS ORDERED: INSULIN (NOVOLOG) ASPART 100 UNITS/ML 10ML VIAL ONE ×2 (10:37→21:17)
[2022-04-17 10:48] LABS: BASO % 0.9 % (0-2.0); HEMATOCRIT 27.2 % (32.4-45.2); HEMOGLOBIN 9.3 GM/dL (10.7-15.3); LYMPH % 22.1 % (8-40); MCH 26.9 pg (25.7-33.7); MCHC 34.3 g/dl (32.0-36.0); MEAN CELL VOLUME 78.4 fl (80-96); MEAN PLT VOLUME 8.6 fl (7.5-11.1); MONO % 7.7 % (3.8-10.2); NEUT % 66.3 % (42.8-82.8); PLATELET COUNT 234 10^3/uL (134-434); RBC 3.46 M/mm3 (3.60-5.2); RDW 14.4 % (11.6-15.6); WHITE BLOOD COUNT 2.3 K/mm3 (4.0-10.0)
[2022-04-17 11:20] LABS: CALCIUM 8.6 mg/dL (8.5-10.1)
[2022-04-17 11:21] LABS: ALBUMIN 2.7 g/dl (3.4-5.0); BLOOD UREA NITROGEN 17.7 mg/dL (7-18); MAGNESIUM 1.9 mg/dL (1.8-2.4)
[2022-04-17 11:24] LABS: CREATININE 0.6 mg/dL (0.55-1.3); PHOSPHOROUS 3.8 mg/dL (2.5-4.9)
[2022-04-17 11:26] LABS: BILIRUBIN,TOTAL 0.8 mg/dL (0.2-1); TOT PROT 7.1 g/dl (6.4-8.2)
[2022-04-17] MEDS ORDERED: CEFAZOLIN SODIUM 2 GM VIAL ONE (17:19)
[2022-04-18] MEDS: CEFAZOLIN SODIUM 2 GM in DEXTROSE 5%-WATER 100 ML IVPB SCH ×3 (03:22→18:14)
[2022-04-18] MEDS: INSULIN SLIDING SCALE (NOVOLOG) 1 VIAL SQ SCH ×3 (06:42→17:06)
[2022-04-18 11:32] LABS: BASO % 0.6 % (0-2.0); HEMATOCRIT 25.3 % (32.4-45.2); HEMOGLOBIN 8.8 GM/dL (10.7-15.3); LYMPH % 24.6 % (8-40); MCH 26.8 pg (25.7-33.7); MCHC 34.9 g/dl (32.0-36.0); MEAN CELL VOLUME 76.8 fl (80-96); MEAN PLT VOLUME 8.4 fl (7.5-11.1); MONO % 10.4 % (3.8-10.2); NEUT % 61.4 % (42.8-82.8); PLATELET COUNT 215 10^3/uL (134-434); RDW 14.6 % (11.6-15.6); WHITE BLOOD COUNT 2.3 K/mm3 (4.0-10.0)
[2022-04-18 11:39] LABS: CHLORIDE 106 mmol/L (98-107); SODIUM 137 mmol/L (136-145)
[2022-04-18 11:41] LABS: CALCIUM 8.5 mg/dL (8.5-10.1)
[2022-04-18 11:42] LABS: ALBUMIN 2.4 g/dl (3.4-5.0); ANION GAP 6 MMOL/L (8-16); CO2 26 mmol/L (21-32); GLUCOSE,RANDOM 267 mg/dL (74-106); MAGNESIUM 1.7 mg/dL (1.8-2.4)
[2022-04-18 11:44] LABS: PHOSPHOROUS 4.2 mg/dL (2.5-4.9)
[2022-04-18 11:45] LABS: CREATININE 0.7 mg/dL (0.55-1.3); SGOT/AST 14 U/L (15-37); SGPT/ALT 13 U/L (13-61)
[2022-04-18 11:46] LABS: BILIRUBIN,TOTAL 0.5 mg/dL (0.2-1); TOT PROT 6.6 g/dl (6.4-8.2)
[2022-04-18 11:47] LABS: ALK PHOS 84 U/L (45-117)
[2022-04-18 12:21] LABS: ERYTHROCYTE SEDIMENTATION RATE 114 mm/hr (0-20)
[2022-04-18] MEDS ORDERED: MAGNESIUM 2GM/50ML STERILE WATER IVPB IVPB ONE ×2 (20:23→22:00)
[2022-04-18 20:27] LABS: EPI CELLS 5 /uL (0-25.1); HYALINE CASTS 0 /uL (0-3.1); PH,URINE 6.5 (5.0-8.0); URINE APPEARANCE CLEAR; URINE BACTERIA 10 /uL (0-1359); URINE BILIRUBIN NEGATIVE (NEGATIVE); URINE COLOR YELLOW; URINE GLUCOSE (UA) NEGATIVE (NEGATIVE); URINE KETONE NEGATIVE (NEGATIVE); URINE LEUK ESTERASE NEGATIVE (NEGATIVE); URINE NITRITE NEGATIVE (NEGATIVE); URINE PROTEIN 2+ (NEGATIVE); URINE RBC 9 /uL (0-23.9); URINE UROBILINOGEN 0.2 mg/dL (0.2-1.0); URINE WBC 5 /uL (0-25.8)
[2022-04-19] MEDS ORDERED: CEFAZOLIN SODIUM 2 GM VIAL ONE (01:02)
[2022-04-19] MEDS: CEFAZOLIN SODIUM 2 GM in DEXTROSE 5%-WATER 100 ML IVPB SCH ×3 (01:39→18:04)
[2022-04-19] MEDS: INSULIN SLIDING SCALE (NOVOLOG) 1 VIAL SQ SCH ×3 (06:51→16:40)
[2022-04-19 09:27] LABS: HEMATOCRIT 26.6 % (32.4-45.2); HEMOGLOBIN 9.2 GM/dL (10.7-15.3); MCH 26.9 pg (25.7-33.7); MCHC 34.7 g/dl (32.0-36.0); MEAN CELL VOLUME 77.7 fl (80-96); MEAN PLT VOLUME 8.2 fl (7.5-11.1); PLATELET COUNT 226 10^3/uL (134-434); RBC 3.42 M/mm3 (3.60-5.2); RDW 14.7 % (11.6-15.6); WHITE BLOOD COUNT 3.4 K/mm3 (4.0-10.0)
[2022-04-19 09:33] LABS: CALCIUM 8.6 mg/dL (8.5-10.1)
[2022-04-19 09:34] LABS: BLOOD UREA NITROGEN 27.5 mg/dL (7-18); MAGNESIUM 2.1 mg/dL (1.8-2.4)
[2022-04-19 09:37] LABS: CREATININE 0.8 mg/dL (0.55-1.3)
[2022-04-19] MEDS: ENOXAPARIN NA (PORCINE) 40 MG/0.4 ML DISP.SYRIN SQ SCH (11:21)
[2022-04-20] MEDS: CEFAZOLIN SODIUM 2 GM in DEXTROSE 5%-WATER 100 ML IVPB SCH ×3 (01:55→17:07)
[2022-04-20] MEDS: INSULIN SLIDING SCALE (NOVOLOG) 1 VIAL SQ SCH ×3 (06:48→16:16)
[2022-04-20] MEDS ORDERED: CEFAZOLIN SODIUM 2 GM VIAL ONE (09:06)
[2022-04-20] MEDS: ENOXAPARIN NA (PORCINE) 40 MG/0.4 ML DISP.SYRIN SQ SCH (09:07)
[2022-04-20 16:12] LABS: INR 1.09 (0.83-1.09); PROTHROMBIN TIME (PATIENT) 12.5 SEC (9.7-13.0)
[2022-04-20] MEDS ORDERED: IRON SUCROSE INJECTION 200 MG in SODIUM CHLORIDE 90 ML IVPB ONE (19:30)
[2022-04-21] MEDS: CEFAZOLIN SODIUM 2 GM in DEXTROSE 5%-WATER 100 ML IVPB SCH ×3 (01:56→17:42)
[2022-04-21] MEDS: INSULIN SLIDING SCALE (NOVOLOG) 1 VIAL SQ SCH ×3 (06:26→16:58)
[2022-04-21 12:57] LABS: HEMATOCRIT 25.6 % (32.4-45.2); HEMOGLOBIN 8.9 GM/dL (10.7-15.3); MCH 27.5 pg (25.7-33.7); MEAN CELL VOLUME 78.5 fl (80-96); MEAN PLT VOLUME 7.9 fl (7.5-11.1); PLATELET COUNT 231 10^3/uL (134-434); RBC 3.26 M/mm3 (3.60-5.2); RDW 14.6 % (11.6-15.6); WHITE BLOOD COUNT 3.3 K/mm3 (4.0-10.0)
[2022-04-21 13:05] LABS: INR 1.05 (0.83-1.09); PROTHROMBIN TIME (PATIENT) 12.1 SEC (9.7-13.0)
[2022-04-21 13:22] LABS: ALBUMIN 2.6 g/dl (3.4-5.0); CALCIUM 8.2 mg/dL (8.5-10.1)
[2022-04-21 13:25] LABS: CREATININE 0.7 mg/dL (0.55-1.3); PHOSPHOROUS 3.3 mg/dL (2.5-4.9)
[2022-04-21 13:27] LABS: BILIRUBIN,TOTAL 0.3 mg/dL (0.2-1); TOT PROT 6.8 g/dl (6.4-8.2)
[2022-04-21] MEDS ORDERED: NAPH,MB-DB/K PH,MBDB POWDER PACKET PO ONE (19:41)
[2022-04-21] MEDS ORDERED: MAGNESIUM SULF 50% (8.12 MEQ/2 ML-1 GM VIAL) IVPB ONE (19:42)
[2022-04-22] MEDS: CEFAZOLIN SODIUM 2 GM in DEXTROSE 5%-WATER 100 ML IVPB SCH ×3 (01:21→17:38)
[2022-04-22] MEDS: INSULIN SLIDING SCALE (NOVOLOG) 1 VIAL SQ SCH ×3 (06:39→17:19)
[2022-04-22 09:14] LABS: EOS % 2.9 % (0-4.5); HEMATOCRIT 21.2 % (32.4-45.2); HEMOGLOBIN 7.2 GM/dL (10.7-15.3); LYMPH % 20.5 % (8-40); MCH 26.9 pg (25.7-33.7); MCHC 34.1 g/dl (32.0-36.0); MEAN CELL VOLUME 78.9 fl (80-96); MEAN PLT VOLUME 8.1 fl (7.5-11.1); NEUT % 66.6 % (42.8-82.8); PLATELET COUNT 236 10^3/uL (134-434); RBC 2.69 M/mm3 (3.60-5.2); RDW 14.7 % (11.6-15.6); WHITE BLOOD COUNT 3.8 K/mm3 (4.0-10.0)
[2022-04-22 09:34] LABS: ALBUMIN 2.6 g/dl (3.4-5.0); BLOOD UREA NITROGEN 28.5 mg/dL (7-18); CALCIUM 8.1 mg/dL (8.5-10.1); MAGNESIUM 2.3 mg/dL (1.8-2.4)
[2022-04-22 09:37] LABS: CREATININE 0.7 mg/dL (0.55-1.3); PHOSPHOROUS 3.2 mg/dL (2.5-4.9)
[2022-04-22 09:39] LABS: BILIRUBIN,TOTAL 0.4 mg/dL (0.2-1); TOT PROT 6.8 g/dl (6.4-8.2)
[2022-04-22] MEDS ORDERED: CEFAZOLIN SODIUM 2 GM VIAL ONE (10:14)
[2022-04-23] MEDS: CEFAZOLIN SODIUM 2 GM in DEXTROSE 5%-WATER 100 ML IVPB SCH ×3 (01:32→18:11)
[2022-04-23] MEDS: INSULIN SLIDING SCALE (NOVOLOG) 1 VIAL SQ SCH ×3 (06:47→17:06)
[2022-04-23] MEDS ORDERED: INSULIN (LEVEMIR) 100 UNITS/ML UNITS SQ SCH (07:00)
[2022-04-23] MEDS ORDERED: LIDOCAINE HCL 1%, 10 MG/ML (20ML VIAL) ONE (07:07)
[2022-04-23] MEDS ORDERED: BUPIVACAINE HCL/PF 0.5% (5MG/ML) 10 ML VIAL ONE (07:08)
[2022-04-23] MEDS ORDERED: GENTAMICIN SO4 80 MG/2 ML VIAL ONE (07:08)
[2022-04-23] MEDS ORDERED: DEXAMETHASONE SOD PHOSPHATE 4 MG/1 ML VIAL ONE (07:08)
[2022-04-23] MEDS ORDERED: MIDAZOLAM HCL 2 MG/2 ML SINGLE DOSE VIAL ONE (07:26)
[2022-04-23] MEDS ORDERED: LIDOCAINE HCL/PF 2% SDV 5ML VIAL ONE (07:26)
[2022-04-23] MEDS ORDERED: PROPOFOL 60 ML ONE (07:26)
[2022-04-23] MEDS ORDERED: SUCCINYLCHOLINE CHLORIDE 200 MG/10 ML SYRINGE ONE (07:31)
[2022-04-23] MEDS ORDERED: BUPIVACAINE HCL/PF 0.5% (5MG/ML) 10 ML VIAL IJ ONE (07:45)
[2022-04-23] MEDS ORDERED: LIDOCAINE HCL 1%, 10 MG/ML (20ML VIAL) INF ONE (07:45)
[2022-04-23] MEDS ORDERED: ONDANSETRON 4 MG/2 ML VIAL ONE (07:55)
[2022-04-23] MEDS ORDERED: ONDANSETRON 4 MG/2 ML VIAL IVPUSH PRN (08:26)
[2022-04-23] MEDS ORDERED: SODIUM CHLORIDE 1,000 ML IV SCH (08:30)
[2022-04-23] MEDS ORDERED: ACETAMINOPHEN 325 MG TABLET (FP) PO PRN (08:45)
[2022-04-23] MEDS ORDERED: SENNOSIDES 8.6MG TABLET (FP) PO PRN (08:45)
[2022-04-23] MEDS ORDERED: DOCUSATE SODIUM 100 MG CAPSULE (FP) PO PRN (08:45)
[2022-04-23 09:04] VITALS: RESP 18
[2022-04-23 12:16] LABS: BASO % 0.6 % (0-2.0); HEMATOCRIT 24.1 % (32.4-45.2); HEMOGLOBIN 8.4 GM/dL (10.7-15.3); LYMPH % 21.8 % (8-40); MCH 27.4 pg (25.7-33.7); MEAN CELL VOLUME 78.3 fl (80-96); MEAN PLT VOLUME 8.1 fl (7.5-11.1); NEUT % 67.6 % (42.8-82.8); PLATELET COUNT 201 10^3/uL (134-434); RBC 3.08 M/mm3 (3.60-5.2); RDW 14.7 % (11.6-15.6); WHITE BLOOD COUNT 3.5 K/mm3 (4.0-10.0)
[2022-04-23 12:19] LABS: INR 1.1 (0.83-1.09); PROTHROMBIN TIME (PATIENT) 12.7 SEC (9.7-13.0)
[2022-04-23 12:42] LABS: CHLORIDE 109 mmol/L (98-107); SODIUM 137 mmol/L (136-145)
[2022-04-23 12:44] LABS: ALBUMIN 2.5 g/dl (3.4-5.0); CALCIUM 7.9 mg/dL (8.5-10.1)
[2022-04-23 12:45] LABS: ANION GAP 4 MMOL/L (8-16); BLOOD UREA NITROGEN 27.4 mg/dL (7-18); CO2 24 mmol/L (21-32); GLUCOSE,RANDOM 239 mg/dL (74-106)
[2022-04-23 12:47] LABS: SGPT/ALT 13 U/L (13-61)
[2022-04-23 12:48] LABS: CREATININE 0.6 mg/dL (0.55-1.3); SGOT/AST 16 U/L (15-37)
[2022-04-23 12:49] LABS: BILIRUBIN,TOTAL 0.4 mg/dL (0.2-1); TOT PROT 6.4 g/dl (6.4-8.2)
[2022-04-23 12:50] LABS: ALK PHOS 66 U/L (45-117)
[2022-04-23] MEDS ORDERED: ACETAMINOPHEN 1000 MG/100 ML BAG IVPB PRN (17:09)
[2022-04-24] MEDS ORDERED: CEFAZOLIN SODIUM 2 GM VIAL ONE (01:09)
[2022-04-24] MEDS: CEFAZOLIN SODIUM 2 GM in DEXTROSE 5%-WATER 100 ML IVPB SCH ×3 (01:17→17:28)
[2022-04-24] MEDS: INSULIN SLIDING SCALE (NOVOLOG) 1 VIAL SQ SCH ×3 (06:19→17:24)
[2022-04-24] MEDS ORDERED: INSULIN (NOVOLOG) ASPART 100 UNITS/ML 10ML VIAL ONE (06:40)
[2022-04-24] MEDS ORDERED: INSULIN (LEVEMIR) 100 UNITS/ML UNITS SQ SCH (07:00)
[2022-04-24 08:41] LABS: HEMATOCRIT 27.3 % (32.4-45.2); HEMOGLOBIN 9.2 GM/dL (10.7-15.3); MCH 26.7 pg (25.7-33.7); MCHC 33.8 g/dl (32.0-36.0); MEAN PLT VOLUME 8.2 fl (7.5-11.1); PLATELET COUNT 221 10^3/uL (134-434); RBC 3.45 M/mm3 (3.60-5.2); RDW 14.7 % (11.6-15.6); WHITE BLOOD COUNT 4.3 K/mm3 (4.0-10.0)
[2022-04-24 09:20] LABS: CALCIUM 8.4 mg/dL (8.5-10.1)
[2022-04-24 09:21] LABS: ALBUMIN 2.6 g/dl (3.4-5.0); MAGNESIUM 1.9 mg/dL (1.8-2.4)
[2022-04-24 09:24] LABS: CREATININE 0.7 mg/dL (0.55-1.3); PHOSPHOROUS 3.3 mg/dL (2.5-4.9)
[2022-04-24 09:26] LABS: TOT PROT 6.9 g/dl (6.4-8.2)
[2022-04-24 09:27] LABS: BILIRUBIN,TOTAL 0.4 mg/dL (0.2-1)
[2022-04-25] MEDS: CEFAZOLIN SODIUM 2 GM in DEXTROSE 5%-WATER 100 ML IVPB SCH ×2 (01:43→09:14)
[2022-04-25] MEDS: INSULIN SLIDING SCALE (NOVOLOG) 1 VIAL SQ SCH ×2 (06:18→11:42)
[2022-04-25] MEDS ORDERED: INSULIN (LEVEMIR) 100 UNITS/ML UNITS SQ SCH (07:00)
[2022-04-25 09:10] LABS: BASO % 0.9 % (0-2.0); EOS % 1.7 % (0-4.5); HEMATOCRIT 28.5 % (32.4-45.2); HEMOGLOBIN 9.6 GM/dL (10.7-15.3); LYMPH % 14.4 % (8-40); MCH 26.7 pg (25.7-33.7); MCHC 33.7 g/dl (32.0-36.0); MEAN CELL VOLUME 79.1 fl (80-96); MEAN PLT VOLUME 8.3 fl (7.5-11.1); MONO % 6.1 % (3.8-10.2); NEUT % 76.9 % (42.8-82.8); PLATELET COUNT 235 10^3/uL (134-434); RDW 15.2 % (11.6-15.6); WHITE BLOOD COUNT 3.9 K/mm3 (4.0-10.0)
[2022-04-25 09:43] LABS: CALCIUM 8.5 mg/dL (8.5-10.1)
[2022-04-25 09:46] LABS: CREATININE 0.7 mg/dL (0.55-1.3)
[2022-04-25 14:36] VITALS: BP 135/76; PULSE 77; TEMP 98
== END 2022-04-25 16:59 | disposition home or self-care (01) | DRG 617 ==
LOC: JER 04:57 → JERBED 08:02 → J6S 11:58
PROVIDERS: ADMIT Internal Medicine; ATTEND Internal Medicine
PROC: 0Y9N0ZZ Drainage of Left Foot, Open Approach (ICD-10-PCS; 2022-04-17)
PROC: 0Y6Y0Z1 Detachment at Left 5th Toe, High, Open Approach (ICD-10-PCS; principal; 2022-04-23 07:56)
DX: E11.69 Type 2 diabetes mellitus with other specified complication (principal); I96 Gangrene, not elsewhere classified; M86.172 Other acute osteomyelitis, left ankle and foot; L02.612 Cutaneous abscess of left foot; L97.528 Non-pressure chronic ulcer of other part of left foot with other specified severity; E11.621 Type 2 diabetes mellitus with foot ulcer; E11.52 Type 2 diabetes mellitus with diabetic peripheral angiopathy with gangrene; L03.032 Cellulitis of left toe; B95.1 Streptococcus, group B, as the cause of diseases classified elsewhere; L08.89 Other specified local infections of the skin and subcutaneous tissue; D50.9 Iron deficiency anemia, unspecified; E88.09 Other disorders of plasma-protein metabolism, not elsewhere classified
CPT/HCPCS: 36415; 71045-TC-FY; 73610-TC-LT-FY; 73630-TC-LT; 73718-TC-LT; 80048; 80053; 81003; 82436; 82570; 82728; 82962; 83036; 83540; 83550; 83735; 84100; 84133; 84156; 84300; 84443; 84702; 85025; 85027; 85610; 85651; 86140; 86850; 86870; 86900; 86901; 86902; 87040; 87070; 87075; 87076; 87077; 87205; 88302-TC; 88311-TC; 93005; 93010; 93926-TC; 94760; 99285-25; C9803-CS; J1756; U0003; U0005

== ENCOUNTER 2025-02-21 08:57 | Inpatient (IN) | payer OTHER ==
[2025-02-21 09:56] LABS: ABSOLUTE IMMATURE GRANULOCYTES 0.13 x10^3/uL (0.0-0.031); BASOPHILS # 0.02 x10^3/uL (0.01-0.08); EOSINOPHIL % 0.8 % (0.7-5.8); EOSINOPHILS # 0.03 x10^3/uL (0.04-0.36); MCHC 32.8 g/dl (32.2-35.5); MEAN CELL VOLUME 97.0 fl (79.4-94.8); MEAN PLT VOLUME 10.6 fl (9.4-12.3); MONOCYTE # 0.30 x10^3/uL (0.24-0.86); MONOCYTE % 8.4 % (4.7-12.5); RDW 19.0 % (12.2-17.1)
[2025-02-21 09:58] LABS: BG HCT 11.0 % (32.4-45.2); VENOUS BASE EXCESS -4.7 mmol/L (-2-2); VENOUS O2 SATURATION 41.6 % (70-80); VENOUS PCO2 33.4 mmHg (38-52); VENOUS PH 7.394 (7.310-7.410)
[2025-02-21] MEDS: SODIUM CHLORIDE 0.9% 500 ML INFUS.BAG IV ONE (10:00)
[2025-02-21 10:02] LABS: INR 1.03 (0.83-1.09); PROTHROMBIN TIME (PATIENT) 11.3 SEC (9.7-13.0)
[2025-02-21 10:04] LABS: ACTIVATED PTT 27.9 SECONDS (25.2-36.5)
[2025-02-21 10:12] LABS: CO2 22 mmol/L (21-32)
[2025-02-21 10:15] LABS: CREATININE 1.7 mg/dL (0.55-1.3); SGOT/AST 60 U/L (15-37); SGPT/ALT 15 U/L (13-61)
[2025-02-21 10:16] LABS: GLUCOSE,RANDOM 479 mg/dL (74-106)
[2025-02-21 10:17] LABS: TOT PROT 6.6 g/dl (6.4-8.2)
[2025-02-21 10:18] LABS: ALK PHOS 97 U/L (45-117)
[2025-02-21 12:09] LABS: EPI CELLS 11 /uL (0-25.1); HYALINE CASTS 0 /uL (0-3.1); URINE APPEARANCE CLEAR; URINE BACTERIA 50 /uL (0-1359); URINE BILIRUBIN 1+ (NEGATIVE); URINE COLOR DK YELLOW; URINE GLUCOSE (UA) 3+ (NEGATIVE); URINE KETONE TRACE (NEGATIVE); URINE LEUK ESTERASE TRACE (NEGATIVE); URINE NITRITE NEGATIVE (NEGATIVE); URINE PROTEIN 3+ (NEGATIVE); URINE RBC 11 /uL (0-23.9); URINE UROBILINOGEN 1.0 mg/dL (0.2-1.0); URINE WBC 9 /uL (0-25.8)
[2025-02-21 12:32] LABS: CO2 19 mmol/L (21-32)
[2025-02-21 12:35] LABS: CREATININE 1.8 mg/dL (0.55-1.3); SGOT/AST 65 U/L (15-37); SGPT/ALT 16 U/L (13-61)
[2025-02-21 12:36] LABS: TOT PROT 6.7 g/dl (6.4-8.2)
[2025-02-21 12:38] LABS: ALK PHOS 90 U/L (45-117); N-TERMINAL BNP 1939.2 pg/ml (5-125)
[2025-02-21 12:40] LABS: HCV DIAGNOSTIC IN-HOUSE W/RFLX NON-REACTIVE (NONREACTIVE)
[2025-02-21 12:44] LABS: HIV INTERPRETATION NEGATIVE (NEGATIVE)
[2025-02-21 12:50] LABS: GLUCOSE,RANDOM 419 mg/dL (74-106); LDH 1316 U/L (84-246)
[2025-02-21 13:44] LABS: IRON SERUM 128.0 ug/dL (50-175)
[2025-02-21 15:56] VITALS: BMI 33.2
[2025-02-21] MEDS: INSULIN ASPART SLIDING SCALE (NOVOLOG) 1 VIAL SQ SCH (17:45)
[2025-02-21] MEDS: INSULIN GLARGINE (LANTUS) 100 UNITS/ML UNITS SQ SCH (21:41)
[2025-02-21 21:58] LABS: MCHC 32.4 g/dl (32.2-35.5); MEAN CELL VOLUME 93.5 fl (79.4-94.8); MEAN PLT VOLUME 10.4 fl (9.4-12.3); RDW 19.3 % (12.2-17.1)
[2025-02-21] MEDS: SODIUM CHLORIDE 1,000 ML IV SCH (23:40)
[2025-02-22 07:51] LABS: ABSOLUTE IMMATURE GRANULOCYTES 0.13 x10^3/uL (0.0-0.031); BASOPHILS # 0.01 x10^3/uL (0.01-0.08); EOSINOPHIL % 1.6 % (0.7-5.8); EOSINOPHILS # 0.05 x10^3/uL (0.04-0.36); MCHC 32.3 g/dl (32.2-35.5); MEAN CELL VOLUME 94.7 fl (79.4-94.8); MEAN PLT VOLUME 10.9 fl (9.4-12.3); MONOCYTE # 0.24 x10^3/uL (0.24-0.86); MONOCYTE % 7.9 % (4.7-12.5); RDW 20.3 % (12.2-17.1)
[2025-02-22 08:07] LABS: TOT PROT 6.1 g/dl (6.4-8.2)
[2025-02-22 08:08] LABS: ALK PHOS 80 U/L (45-117); SGOT/AST 63 U/L (15-37); SGPT/ALT 14 U/L (13-61)
[2025-02-22 08:11] LABS: CO2 21 mmol/L (21-32); GLUCOSE,RANDOM 398 mg/dL (74-106)
[2025-02-22 08:40] LABS: LDH 1288 U/L (84-246)
[2025-02-22 08:50] LABS: CREATININE 1.1 mg/dL (0.55-1.3)
[2025-02-22] MEDS: FOLIC ACID 1 MG TABLET (FP) PO SCH (09:20)
[2025-02-22] MEDS: INSULIN (NOVOLOG) ASPART 100 UNITS/ML 10ML VIAL SQ ONE (10:02)
[2025-02-22 12:12] LABS: IRON SERUM 224 ug/dL (50-175)
[2025-02-22] MEDS: CHOLECALCIFEROL (VIT D3) 5000 UNITS (125 MCG) CAP PO SCH (16:49)
[2025-02-22] MEDS: SODIUM PHOSPHATE - 30 MM in SODIUM CHLORIDE 500 ML IVPB ONE (20:02)
[2025-02-23 07:31] LABS: ABSOLUTE IMMATURE GRANULOCYTES 0.10 x10^3/uL (0.0-0.031); BASOPHILS # 0.01 x10^3/uL (0.01-0.08); EOSINOPHIL % 1.9 % (0.7-5.8); EOSINOPHILS # 0.05 x10^3/uL (0.04-0.36); MCHC 31.6 g/dl (32.2-35.5); MEAN CELL VOLUME 97.4 fl (79.4-94.8); MEAN PLT VOLUME 11.3 fl (9.4-12.3); MONOCYTE # 0.24 x10^3/uL (0.24-0.86); MONOCYTE % 9.1 % (4.7-12.5); RDW 21.2 % (12.2-17.1)
[2025-02-23 08:06] LABS: CO2 22.0 mmol/L (21-32); GLUCOSE,RANDOM 207.0 mg/dL (74-106)
[2025-02-23 08:08] LABS: CREATININE 1.1 mg/dL (0.55-1.3); SGPT/ALT 13.0 U/L (13-61)
[2025-02-23 08:09] LABS: SGOT/AST 58.0 U/L (15-37)
[2025-02-23 08:10] LABS: TOT PROT 5.8 g/dl (6.4-8.2)
[2025-02-23 08:11] LABS: ALK PHOS 84.0 U/L (45-117); INR 0.98 (0.83-1.09); PROTHROMBIN TIME (PATIENT) 10.8 SEC (9.7-13.0)
[2025-02-23 09:35] LABS: LDH 1399.0 U/L (84-246)
[2025-02-23] MEDS: predniSONE 20 MG TABLET (UD) PO SCH (14:20)
[2025-02-23 17:07] LABS: IG A QN SERUM. 226 mg/dL (87-352)
[2025-02-23] MEDS: INSULIN (NOVOLOG) ASPART 100 UNITS/ML 10ML VIAL SQ ONE ×2 (21:58→23:37)
[2025-02-23] MEDS: INSULIN GLARGINE (LANTUS) 100 UNITS/ML UNITS SQ ONE (22:11)
[2025-02-24 08:09] LABS: CMV IgM < 30.0 AU/mL (0.0-29.9)
[2025-02-24 08:23] LABS: RDW 20.9 % (12.2-17.1)
[2025-02-24 08:33] LABS: MCHC 31.3 g/dl (32.2-35.5); MEAN CELL VOLUME 98.2 fl (79.4-94.8); MEAN PLT VOLUME 11.2 fl (9.4-12.3)
[2025-02-24 09:19] LABS: CO2 18.0 mmol/L (21-32); GLUCOSE,RANDOM 375.0 mg/dL (74-106)
[2025-02-24 09:21] LABS: CREATININE 1.4 mg/dL (0.55-1.3)
[2025-02-24 09:22] LABS: SGOT/AST 48.0 U/L (15-37); SGPT/ALT 14.0 U/L (13-61)
[2025-02-24 09:23] LABS: TOT PROT 6.4 g/dl (6.4-8.2)
[2025-02-24 09:24] LABS: ALK PHOS 90.0 U/L (45-117)
[2025-02-24] MEDS: INSULIN GLARGINE (LANTUS) 100 UNITS/ML UNITS SQ SCH ×2 (10:18→21:52)
[2025-02-24 12:30] LABS: LDH 1522.0 U/L (84-246)
[2025-02-24] MEDS: SODIUM CHLORIDE 1,000 ML IV SCH (14:50)
[2025-02-24] MEDS ORDERED: INSULIN GLARGINE (LANTUS) 100 UNITS/ML UNITS SQ SCH (22:00)
[2025-02-24] MEDS: INSULIN (NOVOLOG) ASPART 100 UNITS/ML 10ML VIAL SQ ONE (23:28)
[2025-02-25] MEDS: INSULIN (NOVOLOG) ASPART 100 UNITS/ML 10ML VIAL SQ SCH (16:52)
[2025-02-26 07:54] LABS: MCHC 31.1 g/dl (32.2-35.5); MEAN CELL VOLUME 99.5 fl (79.4-94.8); MEAN PLT VOLUME 10.7 fl (9.4-12.3); RDW 21.2 % (12.2-17.1)
[2025-02-26 08:39] LABS: CO2 20.0 mmol/L (21-32); GLUCOSE,RANDOM 367.0 mg/dL (74-106)
[2025-02-26 08:42] LABS: CREATININE 1.2 mg/dL (0.55-1.3); SGOT/AST 16.0 U/L (15-37); SGPT/ALT 14.0 U/L (13-61)
[2025-02-26 08:43] LABS: ALK PHOS 85.0 U/L (45-117); TOT PROT 6.2 g/dl (6.4-8.2)
[2025-02-27 07:06] LABS: ABSOLUTE IMMATURE GRANULOCYTES 0.05 x10^3/uL (0.0-0.031); BASOPHILS # 0.00 x10^3/uL (0.01-0.08); EOSINOPHIL % 0.2 % (0.7-5.8); EOSINOPHILS # 0.01 x10^3/uL (0.04-0.36); MCHC 31.6 g/dl (32.2-35.5); MEAN CELL VOLUME 97.5 fl (79.4-94.8); MEAN PLT VOLUME 10.3 fl (9.4-12.3); MONOCYTE # 0.19 x10^3/uL (0.24-0.86); MONOCYTE % 4.5 % (4.7-12.5); RDW 19.4 % (12.2-17.1)
[2025-02-27 07:29] LABS: LDH 747.0 U/L (84-246)
[2025-02-27] MEDS: INSULIN (NOVOLOG) ASPART 100 UNITS/ML 10ML VIAL SQ SCH (11:04)
[2025-02-27 13:06] LABS: BABESIA MICROTI ANTIBODY IGG <1:10 (Neg:<1:10); BABESIA MICROTI ANTIBODY IGM <1:10 (Neg:<1:10)
[2025-02-27] MEDS: INSULIN GLARGINE (LANTUS) 100 UNITS/ML UNITS SQ ONE (13:23)
[2025-02-27 13:57] LABS: CO2 22 mmol/L (21-32)
[2025-02-27 14:00] LABS: CREATININE 1.4 mg/dL (0.55-1.3)
[2025-02-27 14:28] LABS: GLUCOSE,RANDOM 473 mg/dL (74-106)
[2025-02-27] MEDS: SODIUM ZIRCONIUM CYCLOSILICATE (LOKELMA) 5 GM PACKET PO SCH (17:42)
[2025-02-27 19:10] LABS: FREE KAPPA,SERUM 86.9 mg/L (3.3-19.4)
[2025-02-27] MEDS ORDERED: INSULIN GLARGINE (LANTUS) 100 UNITS/ML UNITS SQ SCH (22:00)
[2025-02-27] MEDS: INSULIN GLARGINE (LANTUS) 100 UNITS/ML UNITS SQ SCH (22:10)
[2025-02-28 08:44] LABS: MCHC 32.4 g/dl (32.2-35.5); MEAN CELL VOLUME 95.3 fl (79.4-94.8); MEAN PLT VOLUME 9.5 fl (9.4-12.3); RDW 17.8 % (12.2-17.1)
[2025-02-28 09:25] LABS: LDH 642.0 U/L (84-246)
[2025-02-28 09:29] VITALS: RESP 20
[2025-02-28 12:13] LABS: CO2 23.0 mmol/L (21-32)
[2025-02-28 12:14] LABS: GLUCOSE,RANDOM 299.0 mg/dL (74-106)
[2025-02-28 12:17] LABS: CREATININE 1.2 mg/dL (0.55-1.3); SGOT/AST 10.0 U/L (15-37); SGPT/ALT 19.0 U/L (13-61)
[2025-02-28 12:18] LABS: TOT PROT 6.2 g/dl (6.4-8.2)
[2025-02-28 12:20] LABS: ALK PHOS 76.0 U/L (45-117)
[2025-02-28 14:50] VITALS: BP 131/71; PULSE 100; TEMP 98.2
[2025-02-28] MEDS ORDERED: SODIUM ZIRCONIUM CYCLOSILICATE (LOKELMA) 5 GM PACKET PO ONE (15:09)
[2025-02-28 16:11] LABS: EPI CELLS 9 /uL (0-25.1); HYALINE CASTS 1 /uL (0-3.1); URINE APPEARANCE CLEAR; URINE BACTERIA 13 /uL (0-1359); URINE BILIRUBIN NEGATIVE (NEGATIVE); URINE COLOR YELLOW; URINE GLUCOSE (UA) 3+ (NEGATIVE); URINE KETONE NEGATIVE (NEGATIVE); URINE LEUK ESTERASE NEGATIVE (NEGATIVE); URINE NITRITE NEGATIVE (NEGATIVE); URINE PROTEIN 3+ (NEGATIVE); URINE RBC 6 /uL (0-23.9); URINE UROBILINOGEN 1.0 mg/dL (0.2-1.0); URINE WBC 8 /uL (0-25.8)
[2025-02-28] MEDS: INSULIN (NOVOLOG) ASPART 100 UNITS/ML 10ML VIAL SQ ONE (16:23)
== END 2025-02-28 19:54 | disposition home or self-care (01) | DRG 660 ==
LOC: JER 08:57 → JERBED 12:25 → J8W 14:57 → J4W 16:20 → J8W 02-27 20:47
PROVIDERS: ADMIT Student in an Organized Health Care Education/Training Program; ATTEND Nurse Practitioner Family
PROC: 30233N1 Transfusion of Nonautologous Red Blood Cells into Peripheral Vein, Percutaneous Approach (ICD-10-PCS; principal; 2025-02-21)
DX: D59.19 Other autoimmune hemolytic anemia (principal); D61.818 Other pancytopenia; N17.9 Acute kidney failure, unspecified; E87.1 Hypo-osmolality and hyponatremia
CPT/HCPCS: 0241U-QW; 36415; 36430; 71045-TC-FY; 71260-TC; 74177-TC; 76882-TC-RT-FY; 80048; 80053; 81003; 82010; 82247; 82248; 82525; 82570; 82607; 82728; 82746; 82784; 82803; 82955; 82962; 83010; 83036; 83540; 83550; 83605; 83615; 83690; 83735; 83880; 83883; 84100; 84155; 84156; 84165; 84439; 84443; 84466; 84481; 84484; 84703; 85025; 85027; 85041; 85610; 85730; 86157; 86160; 86162; 86644; 86645; 86753; 86803; 86850; 86880; 86900; 86901; 86922; 87086; 87207; 87389; 87798; 88300-TC; 93005; 93010; 93306-TC; 99291; P9051; P9058